=== PATIENT | female | born 1935 | race Caucasian/White ===

== ENCOUNTER 2024-04-16 08:38 | Outpatient (CLI) | payer MEDICARE, OTHER | END 2024-04-16 08:39 | disposition home or self-care (01) | LOC: BURRAD 08:38 | PROVIDERS: ATTEND Neurological Surgery | DX: M48.062 Spinal stenosis, lumbar region with neurogenic claudication (principal); M47.816 Spondylosis without myelopathy or radiculopathy, lumbar region; M41.9 Scoliosis, unspecified; Z98.890 Other specified postprocedural states | CPT/HCPCS: 72100 ==

== ENCOUNTER 2024-05-21 10:09 | Outpatient (CLI) | payer MEDICARE, OTHER | END 2024-05-21 10:10 | disposition home or self-care (01) | LOC: BURRAD 10:09 | PROVIDERS: ATTEND Physician Assistant | DX: M47.26 Other spondylosis with radiculopathy, lumbar region (principal); M43.16 Spondylolisthesis, lumbar region; M41.9 Scoliosis, unspecified; Z98.890 Other specified postprocedural states | CPT/HCPCS: 72100 ==

== ENCOUNTER 2024-08-20 09:43 | Outpatient (CLI) | payer MEDICARE, OTHER | END 2024-08-20 09:44 | disposition home or self-care (01) | LOC: BURRAD 09:43 | PROVIDERS: ATTEND Physician Assistant | DX: M47.26 Other spondylosis with radiculopathy, lumbar region (principal); M43.16 Spondylolisthesis, lumbar region; M47.817 Spondylosis without myelopathy or radiculopathy, lumbosacral region | CPT/HCPCS: 72100 ==